=== PATIENT | female | born 1960 | race Caucasian/White ===

== ENCOUNTER 2018-12-09 10:59 | Emergency (ER) | payer OTHER ==
--- OUTSIDE RECORDS SUMMARY | 2018-12-09 11:02 | XMS REPORT ---
:1960 Author Organization [facility] Address [address] [place] [address] Care Team Providers Name Role Phone Unavailable Unavailable Unavailable Problems This patient has no known problems. Allergies, Adverse Reactions, Alerts This patient has no known allergies or adverse reactions. Medications This patient has no known medications. 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 INCREMENTS transforaminal History: Intraoperative. epidural injection Findings: Radiologist was not present for the exam. Fluoroscopy was not performed by the undersigned. Three images from intraoperative fluoroscopy demonstrate lumbar spine injection. Fluoroscopy time is 12 seconds. IMPRESSION:Intraoperative exam as described above. Signed: Sudhakar Bryan Verified Date/Time: 10/22/2018 10:42:57 Reading Location: [address] Radiology Reading Room SHAH IN 2018-08-18 Reason for FINAL REPORT PATIENT ID: OR/30 MINUTE 14:08:00 exam:->right l3-5 [id number] Fluoroscopy. INCREMENTS transforaminal History: Intraoperative. epidural steroid Findings: Radiologist was not injection present for the exam. Fluoroscopy was not performed by the undersigned. Four images from intraoperative fluoroscopy demonstrate spinal injection. Fluoroscopy time is 19 seconds. IMPRESSION:Intraoperative exam as described above. Signed: Sudhakar Bryan Verified Date/Time: 08/18/2018 14:08:07 Reading Location: [address] Radiology Reading Room , U/S, BREAST, 2017-08-05 Reason for #[id number] - MM, UNILATERAL, 11:27:00 Exam:->abnormal U/S, BREAST, UNILATERAL, RIGHT mammo RIGHTULTRASOUND OF RIGHT BREAST AND RIGHT AXILLA: 08/05/2017Comparison is made to exam dated: 07/30/2017 mammogram - [facility]. Color flow and real-time ultrasound of the right breast and axilla were performed. Vazquez scale images of the real-time examination were reviewed. A right whole breast ultrasound was performed including evaluation of all four quadrants and the retroareolar region of the right breast. There is a septated 3 mm cyst in the right breast at 2 o'clock 3 cm from the nipple, which corresponds to the mammographic finding. No suspicious finding was seen sonographically in the right breast. No abnormalities were seen sonographically in the right axilla. IMPRESSION: BENIGN There is no sonographic evidence of malignancy. A 1 year screening mammogram is recommended. The exam was reviewed by a staff physician. The results and recommendation were discussed with the patient before she left our facility.Nikolay Griffiths M.D.pth,ac/:08/05/2017 11:27:13 Normal Exam Ultrasound BI-RADS: 2 Benign [id number] , DIGITAL, 2017-07-31 Reason for #[id number] - MM, MAMMO, 09:20:00 Exam:->screen DIGITAL, MAMMO, SCREENING, SCREENING, BILATERAL INCLUDING BILATERAL CADBILATERAL DIGITAL SCREENING INCLUDING CAD MAMMOGRAM 3D/2D WITH CAD: 07/30/2017CLINICAL: Routine screening mammogram. No prior films are available for comparison. Lack of availability of prior films for comparison reduces the sensitivity of mammography. The tissue of both breasts is heterogeneously dense. This may lower the sensitivity of mammography. Tomosynthesis 3D imaging of the breast was also performed. Current study was also evaluated with a Computer Aided Detection (CAD) system. There is a 5 mm slightly lobulated mass in the right upper-inner breast middle depth. There also is a possible focal asymmetry in the right breast lower outer aspect anterior depth. IMPRESSION: INCOMPLETE: NEEDS ADDITIONAL IMAGING EVALUATIONThe 5 mm mass in the right upper-inner breast is indeterminate. An ultrasound is recommended for further evaluation. The possible focal asymmetry in the right breast lower outer aspect anterior depth is indeterminate. CC and MLO spot compression combo views, a true lateral combo view, and ultrasound are recommended for further evaluation. Given dense breast tissue bilaterally and lack of prior examinations for comparison, a bilateral ultrasound is recommended. Nisa Evans M.D. ds/:07/31/2017 09:20:39 Additional Imaging Needed [facility] 0 Mammogram BI-RADS: 0 Indeterminate G0202 , LUNG 2017-07-30 FINAL REPORT PATIENT ID: SCREENING 19:01:[id number] of the Chest dated 07/30/2017 CLINICAL INFORMATION: F17.200\E\S\E\Nicotine dependence, unspecified, uncomplicated Comment: Axial images of the chest were obtained from thoracic inlet to the upper abdomen without intravenous contrast. The study was performed at 1.25 mm interval. This exam was performed according to our departmental dose-optimization program, which includes automated exposure control, adjustment of the mA and/or kV according to patient size and/or use of interactive reconstruction technique. Heart is normal in size. Minimal atherosclerotic calcification is seen in the coronary arteries. Great vessels are unremarkable. No adenopathy in the mediastinum or perihilar region. Trachea and mainstem bronchi are patent. A 4 mm nodule is seen in the right mid lobe. The rest of the lungs are clear. No mass lesion or airspace disease is noted. No interstitial disease or bronchiectasis is present. No pleural effusion or pleural based mass is seen. Visualized upper abdomen demonstrates no focal lesion. Impression: Right mid lobe nodule. Lung Rads category 3. Recommend [address] of the chest in 6 months. Signed: Ruth Wheat MDReport Verified Date/Time: 07/30/2017 19:01:20 Reading Location: [facility] C013Y CT Body Reading Room , BONE 2017-07-30 Reason for FINAL REPORT PATIENT ID: DENSITY STUDY 10:52:00 Exam:->screening [id number] Bone density study Clinical History: Screening FINDINGS: LUMBAR SPINE: Bone mineral density measurement: 1.238 gm/cm2 Standard deviation from young adult population (T score): 1.7 Standard deviation for age adjusted population (Z score): 2.8 RIGHT FEMORAL NECK: Bone mineral density measurement: 0.834 gm/cm2 Standard deviation from young adult population (T score): -0.1 Standard deviation for age adjusted population (Z score): 0.9 LEFT FEMORAL NECK: Bone mineral density measurement: 0.891 gm/cm2 Standard deviation from young adult population (T score): 0.4 Standard deviation for age adjusted population (Z score): 1.4 DIAGNOSTIC CRITERIA FOR OSTEOPOROSIS: BMD: Bone mineral densityNormal : BMD measurement less than one standard deviation from young adult populationOsteopenia: BMD measurement between one and 2.5 standard deviations ( 1-2x )Osteoporosis: BMD measurement greater than 2.5 standard deviations ( >2x )Severe osteoporosis: Osteoporosis and one or more fragility fractures According to medical literature, this corresponds to no increased risk of an osteoporotic fracture of the lumbar spine as compared to the young adult population. The left femoral neck bone mineral density corresponds to no increased risk of an osteoporotic fracture as compared to the young adult population. The right femoral neck bone mineral density corresponds to no increased risk of an osteoporotic fracture as compared to the young adult population. IMPRESSION: Normal bone density of the lumbar spine. Normal bone density of the left femoral neck. Normal bone density of the right femoral neck. Signed: Brianna Enriquez Verified Date/Time: 07/30/2017 10:52:45 Reading Location: [facility] Radiology Reading Room
--- OUTSIDE RECORDS SUMMARY | 2018-12-09 11:02 | XMS REPORT | Clinical Summary ---
:1960 Author Organization [facility] Address [address] [place] [address] Care Team Providers Name Role Phone Christina Rueda MD Primary Care Provider Allergies Active Allergy Reactions Severity Noted Date Comments Penicillins Other (See Comments) Medium ALL Abx that ends with CILLIN gives her yeast infection so Difflucan needs to be given prior to any Cillin Abx. Medications Medication Sig Dispensed Refills Start Date End Date Status cholecalciferol, Take 5,000 0 Active vitamin D3, 5,000 Units by unit Tab mouth daily. acetaminophen-codein TK 1 T PO QD 0 09/12/2017 Active e (TYLENOL #3) PRN P 300-30 mg per tablet lisinopril Take 10 mg by 0 Active (PRINIVIL,ZESTRIL) mouth daily. 10 MG tablet tiZANidine Take 4 mg by 0 Active (ZANAFLEX) 4 MG mouth every 6 tablet (six) hours as needed. temazepam (RESTORIL) Take 15 mg by 0 Active 15 mg capsule mouth every night as needed for Sleep. ibuprofen Take 800 mg 0 05/21/2018 Discontinued (ADVIL,MOTRIN) 800 by mouth as MG tablet needed for Pain. HYDROcodone-acetamin Take by mouth 0 01/28/2018 Discontinued ophen (VICODIN HP) as needed. 10-300 mg Tab acetaminophen Take 1,000 mg 0 01/28/2018 Discontinued (TYLENOL) 500 MG by mouth as tablet needed for Pain. tiZANidine Take 1 tablet 30 tablet 1 06/12/2017 01/28/2018 Discontinued (ZANAFLEX) 4 MG (4 mg total) tablet by mouth 3 (three) times daily. lisinopril-hydroCHLO TAKE 1 TABLET 90 tablet 0 09/09/2017 12/10/2017 Discontinued ROthiazide BY MOUTH (PRINZIDE,ZESTORETIC DAILY ) 20-25 mg per tablet rosuvastatin Take 1 tablet 90 tablet 0 09/24/2017 05/21/2018 Discontinued (CRESTOR) 20 MG (20 mg total) tablet by mouth daily. metFORMIN Take 1 tablet 90 tablet 0 09/24/2017 05/21/2018 Discontinued (GLUCOPHAGE) 500 MG (500 mg tablet total) by mouth daily with breakfast. lisinopril-hydroCHLO TAKE 1 TABLET 90 tablet 0 12/11/2017 01/28/2018 Discontinued ROthiazide BY MOUTH (PRINZIDE,ZESTORETIC DAILY ) 20-25 mg per tablet TiZANidine Take 4 mg by 0 01/03/2018 05/21/2018 Discontinued (ZANAFLEX) 4 MG mouth nightly capsule . lisinopril-hydroCHLO Take 1 tablet 90 tablet 0 01/28/2018 08/08/2018 Discontinued ROthiazide by mouth (PRINZIDE,ZESTORETIC daily. ) 20-25 mg per tablet Active Problems Problem Noted Date Elevated hemoglobin A1c 01/28/2018 Mixed hyperlipidemia 01/28/2018 Other chest pain 09/19/2017 Palpitations 09/19/2017 Lumbar spondylosis 07/17/2017 Essential hypertension 06/12/2017 Tobacco use disorder 06/12/2017 Chronic low back pain with bilateral sciatica 06/12/2017 Vitamin D deficiency Encounters Date Type Specialty Care Team Description 10/29/2018 Anesthesia Event Pre-Admission Testing Dex Meier MD 10/22/2018 Anesthesia Event Fish Rodriguez MD 10/22/2018 Surgery Pilo [place]field,EPIDURAL MD Wade STEROID LUMBAR TRANSFORAMINAL 10/22/2018 [facility] Pilo Hatfield MD 10/21/2018 Hospital Pre-Admission Testing Resource, Oqpr Encounter Preadmit Phone 08/18/2018 Anesthesia Event Caprice Whitfield CRNA 08/18/2018 Surgery Pilo [place],EPIDURAL MD Wade STEROID LUMBAR TRANSFORAMINAL 08/18/2018 [facility] Pilo Hatfield Encounter MD Wade 08/08/2018 Hospital Pre-Admission Testing Resource, Oqmt Encounter Preadmit Phone 06/06/2018 Anesthesia Event Clint Thompson MD 05/21/2018 Surgery Gastroenterology Syed Villa MD 05/21/2018 Hospital Gastroenterology Syed Villa MD 01/28/2018 Office Visit Internal [place], [place] Essential hypertension (Primary Dx); MD Ata Elevated hemoglobin A1c; Mixed hyperlipidemia; Tobacco use disorder 12/10/2017 [place] after 12/08/2017 Family History Medical History Relation Name Comments No Known Problem Brother 1 Diabetes Father Hypertension Mother Relation Name Status Comments Brother 1 Alive Father Mother Alive Sister None Social History Tobacco Use Types Packs/Day Years Used Date Former Smoker 0 30 Quit: 2018 Smokeless Tobacco: Never Used Alcohol Use Drinks/Week oz/Week Comments Yes "very rarely" Sex Assigned at Date Recorded Not on file Job Start Date Occupation Industry Not on file Not on file Not on file Travel History Travel Start Travel End No recent travel history available. Last Filed Vital Signs Vital Sign Reading Time Taken Blood Pressure 147/83 10/22/2018 11:00 AM CDT Pulse 67 10/22/2018 11:00 AM CDT Temperature 36.4 C (97.6 F) 10/22/2018 11:00 AM CDT Respiratory Rate 18 10/22/2018 11:00 AM CDT Oxygen Saturation 96% 10/22/2018 11:00 AM CDT Inhaled Oxygen Concentration - - Weight 99.3 kg (219 lb) 10/22/2018 6:59 AM CDT Height 177.8 cm (5' 10") 10/22/2018 6:59 AM CDT Body Mass Index 31.42 10/22/2018 6:59 AM CDT Plan of Treatment Not on file Procedures Procedure Name Priority Date/Time Associated Diagnosis Comments FL STRATEGY ASSOCIATE IN OR Routine 10/22/2018 9:48 Results for this 30 MINUTE AM CDT procedure are in INCREMENTS the results section. PROCEDURE W/ C-ARM 10/22/2018 8:30 Spondylosis of lumbar AM CDT region without myelopathy or radiculopathy Special Needs (C-ARM/TECH) INJECTION,EPIDURAL STEROID 10/22/2018 8:30 AM CDT Spondylosis of lumbar LUMBAR TRANSFORAMINAL region without myelopathy or radiculopathy Special Needs (C-ARM/TECH) FL STRATEGY ASSOCIATE IN OR Routine 08/18/2018 12:36 PM Results for this 30 MINUTE CDT procedure are in INCREMENTS the results section. PROCEDURE W/ C-ARM 08/18/2018 9:10 AM Lumbar spondylosis CDT Spinal stenosis, lumbar region, with neurogenic claudication Special Needs (C-ARM/TECH) INJECTION,EPIDURAL STEROID 08/18/2018 9:10 AM Lumbar spondylosis LUMBAR TRANSFORAMINAL CDT Spinal stenosis, lumbar region, with neurogenic claudication Special Needs (C-ARM/TECH) MOTILITY 05/21/2018 2:00 PM Dysphagia, unspecified ZINC ETCHER type COLONOSCOPY Routine 01/24/2018 after 12/08/2017 Results [place] radiological equipment specialist in or 30 minute increments (10/22/2018 9:48 AM CDT)Only the most recent of2 resultswithin the time period is included. Specimen Narrative Performed At FINAL REPORT [facility] Fluoroscopy. History: Intraoperative. Findings:Radiologist was not present for the exam.Fluoroscopy was not performed by the undersigned.Three images from intraoperative fluoroscopy demonstrate lumbar spine injection. Fluoroscopy time is 12 seconds. IMPRESSION: Intraoperative exam as described above. Signed: Sudhakar Bryan MD Report Verified Date/Time:10/22/2018 10:42:57 Reading Location: [address] Radiology Reading Room Procedure Note Interface, External Ris In - 10/22/2018 10:45 AM CDT FINAL REPORT Fluoroscopy. History: Intraoperative. Findings: Radiologist was not present for the exam. Fluoroscopy was not performed by the undersigned. Three images from intraoperative fluoroscopy demonstrate lumbar spine injection. Fluoroscopy time is 12 seconds. IMPRESSION: Intraoperative exam as described above. Signed: Sudhakar Bryan MD Report Verified Date/Time: 10/22/2018 10:42:57 Reading Location: [address] Radiology Reading Room Performing Organization Address City/State/Zipcode Phone Number [facility] COLONOSCOPY (01/24/2018) Colonoscopy Patient states she had colonoscopy and was diagnosed with polyps. after 12/08/2017 Insurance Payer Benefit Plan / Group Subscriber ID Type Phone Address ALEJANDRINAHERMINIA THOMPSON EUCHA xxxxxxxxxxx
[2018-12-09 12:48] LABS: Absolute Lymphocytes (CBC) 2.4 K/uL (0.7-4.9); Basophils % 0.2 % (0-1.3); Eosinophils % 1.5 % (0-4.4); Hematocrit 43.8 % (36.0-45.0); Lymphocytes % 25.6 % (15.3-44.8); MPV 10.3 fL (7.6-11.3); Monocytes % 5.9 % (3.3-12.3); RBC Red Blood Cell Count 4.71 M/uL (3.86-4.86)
[2018-12-09 12:49] LABS: Protime INR 0.91
[2018-12-09 13:03] LABS: Potassium 4.2 mmol/L (3.5-5.1)
--- NOTE | 2018-12-09 13:27 | EDPHYS ---
Physician Documentation [facility] Name: Maude Lee Age: 58 yrs Sex: Female : 1960 Arrival Date: 12/09/2018 Time: 11:00 Bed 24 Private MD: ED Physician Ronnie Berger HPI: 12/09 12:20 This 58 yrs old Female presents to ER via Wheelchair with complaints of cp Numbness - Feet, Back Pain. 12:20 The patient presents with pain that is chronic. The symptoms are located in the low cp back. 12:20 The pain radiates to the right leg and left leg. Associated signs and symptoms: cp Pertinent positives: numbness, tingling, Pertinent negatives: abdominal pain, chest pain, fever, incontinence, urinary retention, weakness, saddle anesthesia. Patient reports over past 2 weeks she has noticed numbness/tingling in both lower legs below the knee with the right worse than the left. Patient reports numbness/tingling made worse by prolonged sitting. Denies trauma. Historical: - Allergies: 11:29 No Known Allergies; bp - Home Meds: 11:29 lisinopril-hydrochlorothiazide 20-12.5 mg oral tab [Active]; Tylenol #3 Oral [Active]; bp tizanidine oral oral [Active]; Temazepam Oral [Active]; - PMHx: 11:29 Hypertension; Chronic pain; bp - PSHx: 12:23 Hysterectomy; iw - Immunization history:: Adult Immunizations up to date. - Social history:: Smoking status: Patient/guardian denies using tobacco. - Ebola Screening: : No symptoms or risks identified at this time. ROS: 12:30 Constitutional: Negative for body aches, chills, fever, poor PO intake. cp 12:30 Eyes: Negative for injury, pain, redness, and discharge. cp 12:30 ENT: Negative for drainage from ear(s), ear pain, sore throat, difficulty swallowing, difficulty handling secretions. 12:30 Cardiovascular: Negative for chest pain, palpitations. 12:30 Respiratory: Negative for cough, shortness of breath, wheezing. 12:30 Abdomen/GI: Negative for abdominal pain, nausea, vomiting, and diarrhea, bowel incontinence. 12:30 Back: Positive for pain at rest, pain with movement, Negative for injury or acute deformity, decreased range of motion. 12:30 : Negative for urinary symptoms, difficulty urinating, bladder incontinence. 12:30 Skin: Negative for cellulitis, rash. 12:30 Neuro: Positive for numbness, tingling, of the left lower leg and right lower leg, Negative for altered mental status, headache, weakness, saddle anesthesia. 12:30 All other systems are negative. Exam: 12:37 Constitutional: The patient appears in no acute distress, alert, awake, non-toxic, well cp developed, well nourished. 12:37 Head/Face: Normocephalic, atraumatic. cp 12:37 Eyes: Periorbital structures: appear normal, Conjunctiva: normal, no exudate, no injection, Lids and lashes: appear normal, bilaterally. 12:37 ENT: External ear(s): are unremarkable, Nose: is normal, Mouth: Lips: moist, Oral mucosa: pink and intact, moist, Posterior pharynx: is normal, airway is patent, no erythema, no exudate. 12:37 Neck: ROM/movement: is normal, is supple, without pain, no range of motions limitations, no nuchal rigidity. 12:37 Chest/axilla: Inspection: normal, Palpation: is normal, no crepitus, no tenderness. 12:37 Cardiovascular: Rate: normal, Rhythm: regular, JVD: is not appreciated. 12:37 Respiratory: the patient does not display signs of respiratory distress, Respirations: normal, no use of accessory muscles, no retractions, no splinting, no tachypnea, labored breathing, is not present, Breath sounds: are clear throughout, no decreased breath sounds, no stridor, no wheezing. 12:37 Abdomen/GI: Inspection: abdomen appears normal, Palpation: abdomen is soft and non-tender, in all quadrants. 12:37 Back: pain, that is moderate, of the low back area and mid back area, ROM is painful, Straight leg raises: of both lower extremities does not illicit pain. 12:37 Neuro: Motor: moves all fours, strength is normal, Sensation: light touch is decreased in the right lower leg and left lower leg, Gait: is steady, Deep tendon reflexes are 2+ (normal) in the right patellar, right Achilles, left patellar and left Achilles. Vital Signs: 11:29 BP 110 / 78; Pulse 75; Resp 16; Temp 97.5; Pulse Ox 98% ; Weight 97.52 kg; Height 5 ft. bp 10 in. (177.80 cm); 11:29 Body Mass Index 30.85 (97.52 kg, 177.80 cm) bp MDM: 12:01 Patient medically screened. cp 13:26 Data reviewed: vital signs, nurses notes, lab test result(s). cp 13:26 Response to treatment: the patient's symptoms have markedly improved after treatment, cp Pain improved. Patient reports she will f/u with pain management. Patient advised to seek immediate attn saddle anesthesia, bowel or bladder incontinence, weakness of legs, and as a result, I will discharge patient. Refusal of service: The patient/guardian displays adequate decision making capability and despite a detailed discussion of alternatives, benefits, risks, and consequences refuses: MRI lumbar spine due to wait time for availability . 12/09 12:12 Order name: CBC with Diff; Complete Time: 13:24 cp 12/09 12:12 Order name: BMP; Complete Time: 13:24 cp 12/09 12:12 Order name: PT-INR; Complete Time: 13:24 cp 12/09 12:12 Order name: IV; Complete Time: 12:42 cp Administered Medications: 13:16 Not Given (Duplicate Order): fentaNYL (PF) 25 mcg IVP once iw 13:25 Drug: fentaNYL (PF) 25 mcg Route: IM; Site: right deltoid; iw Disposition: 12/09/18 13:26 Discharged to Home. Impression: Low back pain, Radiculopathy, lumbosacral region. - Condition is Stable. - Discharge Instructions: Back Pain, Adult, Lumbosacral Radiculopathy. - Prescriptions for Medrol (Juancarlos) 4 mg Oral Tablets, Dose Pack - take 1 tablet by ORAL route as directed - follow package instructions; 1 packet. - Medication Reconciliation Form, Thank You Letter, Antibiotic Education, Prescription Opioid Use form. - Follow up: Private Physician; When: 2 - 3 days; Reason: Recheck today's complaints. - Problem is an ongoing problem. - Symptoms have improved. Addendum: 12/10/2018 16:34 Co-signature as Attending Physician, Ronnie Berger MD I agree with the assessment and c adan plan of care. Signatures: Dispatcher [employer] EDMS Ab, Ronnie, MD MD rabia Boom, Atiya, RN RN iw Ronnie Tobar, LUIS PA Pilo Cobos, RN RN bp Corrections: (The following items were deleted from the chart) 12/09 12:24 12:12 Urine Test ordered. cp 12:58 12:12 Urine Dipstick-Ancillary ordered. cp 13:37 13:26 12/09/2018 13:26 Discharged to Home. Impression: Low back pain; Radiculopathy, iw lumbosacral region. Condition is Stable. Forms are Medication Reconciliation Form, Thank You Letter, Antibiotic Education, Prescription Opioid Use. Follow up: Private Physician; When: 2 - 3 days; Reason: Recheck today's complaints. Problem is an ongoing problem. Symptoms have improved. cp
--- NOTE | 2018-12-09 13:27 | ER ---
Nurse's Notes [facility] Name: Maude Lee Age: 58 yrs Sex: Female : 1960 Arrival Date: 12/09/2018 Time: 11:00 Bed 24 Private MD: Diagnosis: Low back pain;Radiculopathy, lumbosacral region Presentation: 12/09 11:26 Presenting complaint: Patient states: 2 WEEKS INTERMITTENT BILATERAL FEET SWELLING AND bp NUMBNESS/TINGLING, PROCEEDED BY PROLONGED SEATED POSITION. H/O CHRONIC BACK PAIN. Transition of care: patient was not received from another setting of care. Onset of symptoms is unknown. Risk Assessment: Do you want to hurt yourself or someone else? Patient reports no desire to harm self or others. Initial Sepsis Screen: Does the patient meet any 2 criteria? No. Patient's initial sepsis screen is negative. Does the patient have a suspected source of infection? No. Patient's initial sepsis screen is negative. Care prior to arrival: None. 11:26 Method Of Arrival: Wheelchair bp 11:26 Acuity: HUMA 4 bp 12:22 Acuity: HUMA 3 iw Triage Assessment: 12:15 General: Appears in no apparent distress. Behavior is calm. Musculoskeletal: Range of iw motion: intact in all extremities. Historical: - Allergies: 11:29 No Known Allergies; bp - Home Meds: 11:29 lisinopril-hydrochlorothiazide 20-12.5 mg oral tab [Active]; Tylenol #3 Oral [Active]; bp tizanidine oral oral [Active]; Temazepam Oral [Active]; - PMHx: 11:29 Hypertension; Chronic pain; bp - PSHx: 12:23 Hysterectomy; iw - Immunization history:: Adult Immunizations up to date. - Social history:: Smoking status: Patient/guardian denies using tobacco. - Ebola Screening: : No symptoms or risks identified at this time. Screenin:40 Abuse screen: Denies threats or abuse. Denies injuries from another. Nutritional iw screening: No deficits noted. Tuberculosis screening: No symptoms or risk factors identified. Fall Risk None identified. Assessment: 12:15 General: Appears in no apparent distress. comfortable, Behavior is calm, cooperative. iw Pain: Complains of pain in lumbar area, left low back and right low back. Neuro: Level of Consciousness is awake, alert, obeys commands, Oriented to person, place, time, situation, Moves all extremities. Full function. Cardiovascular: Patient's skin is warm and dry. Respiratory: Respiratory effort is even, unlabored, Respiratory pattern is regular, symmetrical. GI: No signs and/or symptoms were reported involving the gastrointestinal system. : No signs and/or symptoms were reported regarding the genitourinary system. Derm: Skin is intact, is healthy with good turgor. Musculoskeletal: Range of motion: intact in all extremities, Reports pain in lumbar area. 13:19 Reassessment: pt states she doesn't want to wait on MRI, can follow up with her pain iw doctor and have an MRI ordered outpatient. Vital Signs: 11:29 BP 110 / 78; Pulse 75; Resp 16; Temp 97.5; Pulse Ox 98% ; Weight 97.52 kg; Height 5 ft. bp 10 in. (177.80 cm); 11:29 Body Mass Index 30.85 (97.52 kg, 177.80 cm) bp ED Course: 11:00 Patient arrived in ED. as 11:27 Triage completed. bp 11:29 Arm band placed on. bp 11:52 Ronnie Tobar PA is PHCP. cp 11:53 Ronnie Berger MD is Attending Physician. cp 11:57 Atiya Nur RN is Primary Nurse. iw 12:40 Initial lab(s) drawn, by me, sent to lab. Inserted saline lock: 22 gauge in left iw antecubital area, using aseptic technique. Blood collected. 13:36 No provider procedures requiring assistance completed. IV discontinued, intact, iw bleeding controlled, No redness/swelling at site. Pressure dressing applied. Administered Medications: 13:16 Not Given (Duplicate Order): fentaNYL (PF) 25 mcg IVP once iw 13:25 Drug: fentaNYL (PF) 25 mcg Route: IM; Site: right deltoid; iw Outcome: 13:26 Discharge ordered by . cp 13:36 Discharged to home ambulatory, with family. iw 13:36 Condition: good 13:36 Discharge instructions given to patient, family, Instructed on discharge instructions, follow up and referral plans. medication usage, Demonstrated understanding of instructions, follow-up care, medications, Prescriptions given X 1. 13:37 Patient left the ED. iw Signatures: Silvina Lr as Atiya Nur, RN RN iw Ronnie Tobar PA PA cp Peltier, Brian, RN RN bp
== END 2018-12-09 13:37 | disposition home or self-care (01) ==
LOC: ER 10:59
DX: M54.17 Radiculopathy, lumbosacral region (principal); I10 Essential (primary) hypertension
CPT/HCPCS: 36415; 80048; 85025; 85610; 96372; 99284